=== PATIENT | male | born 1985 | race Caucasian/White ===

== ENCOUNTER 2017-02-10 16:46 | Emergency (ER) | payer OTHER ==
[~2017-02-10] VITALS: Ht 193 cm; Wt 86.2 kg
[2017-02-10] MEDS ORDERED: SILVER SULFADIAZINE 1% CREAM 25 GM TUBE TP ONE ×2 (18:00→18:26)
[2017-02-10] MEDS ORDERED: TDAP DIPH,PERTUSS,TET VAC/PF 0.5 ML DISP.SYRIN IM ONE ×2 (18:15→18:26)
--- NOTE | 2017-02-10 18:30 | NUR ---
PT WAS EVALUATED BY DR GARCIA. PT WAS D/C TO HOME. D/C INSTRUCTIONS GIVEN TO THE PT BY DR GARCIA.
[2017-02-10 18:34] VITALS: BP 136/81
== END 2017-02-10 18:35 | disposition home or self-care (01) ==
LOC: ER 16:47
DX: T23.001A Burn of unspecified degree of right hand, unspecified site, initial encounter (principal); F17.200 Nicotine dependence, unspecified, uncomplicated; X08.8XXA Exposure to other specified smoke, fire and flames, initial encounter; Y93.89 Activity, other specified; Y92.89 Other specified places as the place of occurrence of the external cause; Y99.8 Other external cause status
CPT/HCPCS: 16000; 90471; 90715; 99284; A4663

== ENCOUNTER 2017-06-11 17:02 | Emergency (ER) | payer OTHER ==
[~2017-06-11] VITALS: Ht 188 cm; Wt 77.1 kg
[2017-06-11] MEDS: ONDANSETRON 4 MG/2 ML VIAL IV ONE (17:30)
[2017-06-11] MEDS: IV NORMAL SALINE 1000 ML BAG IV ONE (17:30)
[2017-06-11] MEDS: KETOROLAC TROMETHAMINE 15 MG INJ IV ONE (17:32)
[2017-06-11] MEDS ORDERED: ONDANSETRON 4 MG/2 ML VIAL ONE (17:33)
[2017-06-11] MEDS ORDERED: KETOROLAC TROMETHAMINE 30 MG INJ ONE (17:33)
[2017-06-11] MEDS ORDERED: HYDROMORPHONE 4 MG/1 ML DISP.SYRIN ONE (17:34)
[2017-06-11] MEDS: HYDROMORPHONE 1 MG/1 ML DISP.SYRIN IV ONE (17:40)
[2017-06-11 17:49] LABS: *BLOOD, URINE 3+ (NEGATIVE); *CLARITY,URINE SLIGHTLY CLOUDY (CLEAR); *COLOR,URINE YELLOW (YELLOW); *KETONES,URINE NEGATIVE (NEGATIVE); *UROBILINOGEN,URINE 0.2 E.U./dl (NORMAL); NITRITE, URINE NEGATIVE (NEGATIVE); UGLUCOSE NEGATIVE (NEGATIVE)
[2017-06-11 18:01] LABS: *BILIRUBIN,URIN NEGATIVE (NEGATIVE); *PROTEIN,URINE 3+ (NEGATIVE); LEUKOCYTE ESTERASE ,URINE 1+ (NEGATIVE)
[2017-06-11 18:02] LABS: RBC,URINE 20-50 /HPF (0-3)
[2017-06-11 18:03] LABS: BACTERIA,URINE FEW /HPF (NONE SEEN); CALCIUM OXALATE CRYSTALS,UR FEW /HPF (NONE SEEN); MUCUS,URINE MANY /LPF (0-FEW); WBC,URINE 20-50 /HPF (0-3)
[2017-06-11] MEDS ORDERED: LEVOFLOXACIN 750MG/D5W 150 ML IV ONE (18:22)
[2017-06-11] MEDS: LEVOFLOXACIN 750 MG/D5W 150 ML PIGGYBACK IV ONE (18:25)
--- NOTE | 2017-06-11 19:24 | NUR ---
RECEIVED REPORT FROM JUSTA MCELROY.
--- NOTE | 2017-06-11 19:58 | NUR ---
Patient discharged to home in stable conditon. Written and verbal after care instructions given. Patient verbalizes understanding of instructions. Patient expressed reduced flank pain. Peripheral IV removed. Patient able to ambulate unassisted with steady gait. Patient left with all personal belongings.
[2017-06-11 20:01] VITALS: BP 128/61
== END 2017-06-11 20:02 | disposition home or self-care (01) ==
LOC: ER 17:04
DX: N39.0 Urinary tract infection, site not specified (principal); N20.0 Calculus of kidney; F17.210 Nicotine dependence, cigarettes, uncomplicated
CPT/HCPCS: A4663; J1170; J1885; J1956; J2405; J7030

== ENCOUNTER 2017-08-11 17:48 | Emergency (ER) | payer OTHER ==
[~2017-08-11] VITALS: Ht 188 cm; Wt 77.1 kg
[2017-08-11] MEDS ORDERED: IV NORMAL SALINE 1000 ML BAG IV ONE (18:45)
[2017-08-11] MEDS ORDERED: METOCLOPRAMIDE HCL 10 MG/2 ML VIAL IV ONE (18:45)
[2017-08-11] MEDS ORDERED: KETOROLAC TROMETHAMINE 15 MG INJ IV ONE (18:45)
[2017-08-11] MEDS ORDERED: KETOROLAC TROMETHAMINE 15 MG INJ ONE (18:50)
[2017-08-11] MEDS ORDERED: METOCLOPRAMIDE HCL 10 MG/2 ML VIAL ONE (18:50)
--- NOTE | 2017-08-11 18:56 | NUR ---
Pt out of ER for CT.
[2017-08-11 18:59] LABS: BASOPHILS % (AUTO) 0.2 % (0.0-2.0); EOSINOPHILS # (AUTO) 0.2 K/uL (0.0-0.7); EOSINOPHILS % (AUTO) 1.1 % (0.0-7.0); HEMATOCRIT 44.8 % (36.7-47.1); HEMOGLOBIN 15.4 g/dL (12.5-16.3); LYMPHOCYTES # (AUTO) 1.9 K/uL (20.0-40.0); LYMPHOCYTES % (AUTO) 13.3 % (20.5-51.5); MEAN CORPUSCULAR HEMOGLOBIN 31.5 uug (23.8-33.4); MEAN CORPUSCULAR HGB CONC 35 g/dL (32.5-36.3); MEAN CORPUSCULAR VOLUME 91.3 fL (73.0-96.2); MONOCYTES % (AUTO) 6.9 % (0.0-11.0); NEUTROPHILS # (AUTO) 11.4 K/uL (1.8-8.9); NEUTROPHILS % (AUTO) 78.5 % (38.5-71.5); PLATELET COUNT (AUTO) 324 K/uL (152-348); WHITE BLOOD COUNT (AUTO) 14.5 K/uL (3.6-10.2)
[2017-08-11 19:03] LABS: *BLOOD, URINE 3+ (NEGATIVE); *CLARITY,URINE SLIGHTLY CLOUDY (CLEAR); *KETONES,URINE 1+ (NEGATIVE); *PROTEIN,URINE 1+ (NEGATIVE); *UROBILINOGEN,URINE 0.2 E.U./dl (NORMAL); LEUKOCYTE ESTERASE ,URINE TRACE (NEGATIVE); NITRITE, URINE NEGATIVE (NEGATIVE); UGLUCOSE NEGATIVE (NEGATIVE)
[2017-08-11 19:10] LABS: CREATININE 1.4 mg/dL (0.6-1.3); POTASSIUM 3.6 mmol/L (3.5-5.1)
[2017-08-11 19:13] LABS: *BILIRUBIN,URIN 1+ (NEGATIVE)
--- NOTE | 2017-08-11 19:15 | NUR ---
Patient back to ER from CT.
[2017-08-11 19:16] LABS: *COLOR,URINE YELLOW (YELLOW); BACTERIA,URINE FEW /HPF (NONE SEEN); RBC,URINE 20-50 /HPF (0-3); SQUAMOUS EPITHELIAL CELL,UR FEW /HPF (NONE SEEN)
[2017-08-11 19:17] LABS: BILIRUBIN,DIRECT 0.2 mg/dL (0.0-0.2); BILIRUBIN,TOTAL 0.9 mg/dL (0.2-1.0); TOTAL PROTEIN, SERUM 7.2 g/dL (6.4-8.2)
--- NOTE | 2017-08-11 20:00 | NUR ---
Patient discharged to home in stable conditon. Written and verbal after care instructions given. Patient verbalizes understanding of instructions. Patient ambulated out of ER with steady gait, no acute signs of distress, VSS, all belongings taken, IV site discontinued.
[2017-08-11 20:03] VITALS: BP 119/88
== END 2017-08-11 19:50 | disposition home or self-care (01) ==
LOC: ER 17:58
DX: N23 Unspecified renal colic (principal); N13.2 Hydronephrosis with renal and ureteral calculous obstruction; N39.0 Urinary tract infection, site not specified; K76.0 Fatty (change of) liver, not elsewhere classified; Z87.442 Personal history of urinary calculi; F17.200 Nicotine dependence, unspecified, uncomplicated
CPT/HCPCS: 36415; 70030-TC; 83690; 85025; 87086; A4663; J1885; J2765; J7030

== ENCOUNTER 2021-06-24 00:53 | Emergency (ER) | payer OTHER ==
[~2021-06-24] VITALS: Ht 188 cm; Wt 79.4 kg
--- NOTE | 2021-06-24 01:06 | NUR ---
PT AMBULATED TO ER C/O LT EARLOBE PAIN FOR 1 WEEK. NO SOB OR LABORED BREATHING, AFEBRILE.
--- NOTE | 2021-06-24 01:10 | NUR ---
DR. ROPER AT BEDSIDE, MSE IN PROGRESS.
[2021-06-24] MEDS ORDERED: SODIUM BICARBONATE 4.2 % (NEUT) 5 ML VIAL TP ONE (01:15)
[2021-06-24] MEDS ORDERED: SULFAMETH/TRIMETH 800/160 MG TABLET PO ONE (01:15)
[2021-06-24] MEDS ORDERED: LIDOCAINE 1%-EPI 1:100,000 20 ML VIAL IJ ONE (01:15)
[2021-06-24] MEDS ORDERED: SULFAMETH/TRIMETH 800/160 MG TABLET ONE (01:25)
[2021-06-24] MEDS ORDERED: SULF1TAB48 PO ×2 (01:35→01:49)
--- NOTE | 2021-06-24 01:44 | NUR ---
Patient discharged to home in stable condition. Written and verbal after care instructions given. Patient verbalizes understanding of instructions. Stressed follow up or return to ER for worsening s/s. Steady gait, denies any pain/discomfort upon discharge.
[2021-06-24] MEDS ORDERED: HYDR-4209 PO (01:49)
[2021-06-24 01:57] VITALS: BP 132/82
[2021-06-24] MEDS ORDERED: HYDROCODONE/APAP 5-325MG TABLET ONE (01:58)
[2021-06-24] MEDS ORDERED: HYDROCODONE/APAP 5-325MG TABLET PO ONE (02:00)
== END 2021-06-24 01:58 | disposition home or self-care (01) ==
LOC: ER 00:56
DX: H60.02 Abscess of left external ear (principal); F17.210 Nicotine dependence, cigarettes, uncomplicated; Z87.442 Personal history of urinary calculi; R03.0 Elevated blood-pressure reading, without diagnosis of hypertension
CPT/HCPCS: 69000; 99284; 99406; J3490 ×2; A4663

== ENCOUNTER 2021-06-26 01:33 | Emergency (ER) | payer OTHER ==
[~2021-06-26] VITALS: Ht 188 cm; Wt 79.4 kg
[~2021-06-26 01:33] MED LIST: HYDR-4209 PO; SULF1TAB48 PO
--- NOTE | 2021-06-26 01:41 | NUR ---
pt in room 4a states he is here for a recheck of a wound from left ear he was here on June 24 2021.
--- NOTE | 2021-06-26 01:54 | NUR ---
Dr. Fuller at bedside for MSE.
[2021-06-26] MEDS ORDERED: LIDOCAINE HCL 2% 20 ML VIAL TP ONE (02:00)
[2021-06-26 02:23] VITALS: BP 140/75
--- NOTE | 2021-06-26 02:23 | NUR ---
Patient discharged to home in stable condition. Written and verbal after care instructions given. Patient verbalizes understanding of instructions. Stressed follow up or return to ER for worsening s/s.
== END 2021-06-26 02:24 | disposition home or self-care (01) ==
LOC: ER 01:37
DX: H60.02 Abscess of left external ear (principal); F17.210 Nicotine dependence, cigarettes, uncomplicated
CPT/HCPCS: 69000; 99282; J3490; A4663

== ENCOUNTER 2021-06-28 01:13 | Emergency (ER) | payer OTHER ==
[~2021-06-28] VITALS: Ht 188 cm; Wt 79.4 kg
[2021-06-28] MEDS ORDERED: LIDOCAINE HCL 1% 20 ML VIAL ONE (01:30)
--- NOTE | 2021-06-28 01:45 | NUR ---
assisted md in darining and packing of the left lower ear abscess, patient is awake oriented , ambulatotry
--- NOTE | 2021-06-28 02:10 | NUR ---
MD INSTRUCTED PATIENT TO SEE PRIMARY PHYSICIAN IN A FEW DAYS . MAKE SURE EAR IS CLEANED AND PAT DRY , VERBALIZES UNDERSTANDING
== END 2021-06-28 02:12 | disposition home or self-care (01) ==
LOC: ER 01:15
DX: Z48.817 Encounter for surgical aftercare following surgery on the skin and subcutaneous tissue (principal); H60.02 Abscess of left external ear; F17.210 Nicotine dependence, cigarettes, uncomplicated
CPT/HCPCS: 64999; 99283; 99406; J3490 ×2; A4663

== ENCOUNTER 2024-06-21 04:59 | Emergency (ER) | payer OTHER ==
[~2024-06-21] VITALS: Ht 188 cm; Wt 83.9 kg
[2024-06-21] MEDS ORDERED: KETOROLAC TROMETHAMINE 15 MG INJ ONE (05:31)
[2024-06-21] MEDS ORDERED: TAMSULOSIN HCL 0.4 MG CAP.SR.24H ONE (05:31)
[2024-06-21] MEDS ORDERED: ONDANSETRON 4 MG/2 ML VIAL ONE ×2 (05:31→07:42)
[2024-06-21 05:32] LABS: BASOPHILS # (AUTO) 0.1 K/UL (0.0-0.2); BASOPHILS % (AUTO) 0.7 % (0.0-2.0); EOSINOPHILS # (AUTO) 0.5 K/uL (0.0-0.7); EOSINOPHILS % (AUTO) 6.7 % (0.0-7.0); HEMATOCRIT 45.4 % (36.7-47.1); HEMOGLOBIN 15.5 g/dL (12.5-16.3); LYMPHOCYTES # (AUTO) 2.6 K/uL (0.8-4.8); LYMPHOCYTES % (AUTO) 35.8 % (20.5-51.5); MEAN CORPUSCULAR HEMOGLOBIN 33.2 uug (23.8-33.4); MEAN CORPUSCULAR HGB CONC 34 g/dL (32.5-36.3); MEAN CORPUSCULAR VOLUME 97.4 fL (73.0-96.2); MONOCYTES # (AUTO) 0.8 K/uL (0.1-1.30); MONOCYTES % (AUTO) 10.8 % (0.0-11.0); NEUTROPHILS # (AUTO) 3.3 K/uL (1.8-8.9); PLATELET COUNT (AUTO) 323 K/uL (152-348); RED BLOOD CELL COUNT(AUTO) 4.66 MIL/uL (4.06-5.63); WHITE BLOOD COUNT (AUTO) 7.3 K/uL (3.6-10.2)
[2024-06-21 05:37] LABS: DIFFERENTIAL COMMENT 1
[2024-06-21] MEDS: TAMSULOSIN HCL 0.4 MG CAP.SR.24H PO ONE (05:40)
[2024-06-21] MEDS: KETOROLAC TROMETHAMINE 15 MG INJ IVP ONE (05:40)
[2024-06-21] MEDS: ONDANSETRON 4 MG/2 ML VIAL IV ONE ×2 (05:41→07:45)
[2024-06-21] MEDS: IV NORMAL SALINE 500 ML BAG IV ONE ×2 (05:41→06:00)
[2024-06-21 05:59] LABS: CALCIUM 8.7 mg/dL (8.5-10.1); CREATININE 0.7 mg/dL (0.6-1.3); POTASSIUM 3.8 mmol/L (3.5-5.1)
[2024-06-21] MEDS ORDERED: MORPHINE SULFATE 4 MG/1 ML DISP.SYRIN ONE ×2 (06:03→07:42)
[2024-06-21 06:05] LABS: ALBUMIN 4.1 g/dL (3.4-5.0); BILIRUBIN,TOTAL 0.2 mg/dL (0.2-1.0); C-REACTIVE PROTEIN 0.12 mg/dL (0.00-0.30); MAGNESIUM 2.3 mg/dL (1.8-2.4)
[2024-06-21] MEDS: MORPHINE SULFATE 4 MG/1 ML DISP.SYRIN IV ONE ×2 (06:07→07:44)
[2024-06-21] MEDS ORDERED: OXYC5TAB3 PO (06:09)
[2024-06-21] MEDS ORDERED: ONDA4TAB5 PO (06:10)
[2024-06-21] MEDS ORDERED: TAMS-3 PO (06:12)
[2024-06-21] MEDS ORDERED: MORPHINE SULFATE 2 MG/1 ML DISP.SYRIN ONE (07:43)
[2024-06-21 09:05] LABS: *BILIRUBIN,URIN NEGATIVE (NEGATIVE); *BLOOD, URINE NEGATIVE (NEGATIVE); *CLARITY,URINE CLEAR (CLEAR); *COLOR,URINE YELLOW (YELLOW); *KETONES,URINE NEGATIVE (NEGATIVE); *PROTEIN,URINE NEGATIVE (NEGATIVE); *UROBILINOGEN,URINE 0.2 E.U./dl (NORMAL); LEUKOCYTE ESTERASE ,URINE NEGATIVE (NEGATIVE); NITRITE, URINE NEGATIVE (NEGATIVE); UGLUCOSE NEGATIVE (NEGATIVE)
[2024-06-21] MEDS ORDERED: KETO120S5 TP (09:34)
[2024-06-21 09:38] VITALS: BP 129/77; TEMP 98.6; O2SAT 96
== END 2024-06-21 09:40 | disposition home or self-care (01) ==
LOC: ER 05:05
DX: N20.0 Calculus of kidney (principal); F17.210 Nicotine dependence, cigarettes, uncomplicated; Z60.2 Problems related to living alone
CPT/HCPCS: 99285; 74176; 96374; 96375; 96361; 80053; 81003; 83735; 85025; 86140; 36415; 96376; J1885; J2405 ×2; J2270 ×3; J7040 ×2; A4606; A4663

== ENCOUNTER 2024-11-18 19:08 | Emergency (ER) | payer MEDICAID, OTHER ==
[~2024-11-18] VITALS: Ht 188 cm; Wt 81.6 kg
[~2024-11-18 19:08] MED LIST changes: +KETO120S5 TP; +ONDA4TAB5 PO; +OXYC5TAB3 PO; +TAMS-3 PO
[2024-11-18 19:12] VITALS: BP 125/73
[2024-11-18] MEDS ORDERED: LIDOCAINE 2%-EPI 1:100,000 20 ML VIAL ONE (19:47)
[2024-11-18] MEDS: LIDOCAINE 2%-EPI 1:100,000 20 ML VIAL IJ ONE (19:48)
[2024-11-18 20:57] VITALS: BP 122/77; TEMP 98; O2SAT 99
[2024-11-18] MEDS: NEOMY/BACITRA/POLYMYXIN B OINT UD PACKET TP ONE (20:57)
== END 2024-11-18 20:58 | disposition home or self-care (01) ==
LOC: ER 19:20
DX: H02.846 Edema of left eye, unspecified eyelid (principal); L72.3 Sebaceous cyst; F17.210 Nicotine dependence, cigarettes, uncomplicated; Z87.442 Personal history of urinary calculi; Z60.2 Problems related to living alone
CPT/HCPCS: A4606; A4663

== ENCOUNTER 2024-11-24 00:37 | Emergency (ER) | payer OTHER ==
[~2024-11-24] VITALS: Ht 188 cm; Wt 81.6 kg
[2024-11-24 00:42] VITALS: BP 146/97
[2024-11-24] MEDS ORDERED: NEOMY/BACITRA/POLYMYXIN B OINT UD PACKET TP ONE (01:16)
[2024-11-24] MEDS: NEOMY/BACITRA/POLYMYXIN B OINT UD PACKET TP ONE (01:18)
[2024-11-24 01:47] VITALS: BP 132/87; TEMP 98; O2SAT 98
== END 2024-11-24 01:45 | disposition home or self-care (01) ==
LOC: ER 00:47
DX: L72.3 Sebaceous cyst (principal); F17.210 Nicotine dependence, cigarettes, uncomplicated; R03.0 Elevated blood-pressure reading, without diagnosis of hypertension; Z48.02 Encounter for removal of sutures; Z60.2 Problems related to living alone
CPT/HCPCS: A4606; A4663